=== PATIENT | female | born 1965 | race Two or more races ===

== ENCOUNTER → 2020-07-09 | Outpatient (CLI) | payer OTHER ==
[~2020-07-09] MED LIST: LIDOCAINE 2%/EPI 1:100,000 20 ML VIAL. INJ ONE
--- NOTE | 2020-07-09 16:45 | RAD ---
EXAM: Stereotactic right breast biopsy; specimen radiograph, postbiopsy clip placement, unilateral po stbiopsy mammogram. CLINICAL HISTORY: Suspicious calcifications right breast TECHNIQUE AND FINDINGS: Risks, benefits, treatment options, and potential complications were discussed with the patient. Cons ent was obtained and the patient indicated willingness to proceed. A time out was performed immediate ly prior to the procedure to correctly identify the patient, side, site, and type of procedure to be performed. The patient was seated at the stereotactic machine and the right breast was placed in compression. Im ages were obtained and the lesion(s) of concern was localized using stereotaxis. The overlying skin w as then sterilely prepped and local anesthesia was administered using 1% lidocaine in the skin and 2% lidocaine with epinephrine in the deeper soft tissues. The biopsy device was then advanced and appro priate positioning was confirmed with additional imaging. Subsequently, 12 core biopsy samples were obtained with vacuum assistance. A postbiopsy specimen radi ograph was obtained demonstrating inclusion of the lesion(s) of interest. A biopsy marker clip was th en advanced to the site of biopsy utilizing the same guidance technique. Good hemostasis was achieved with light manual compression and sterile dressing was applied. The patient was then transferred to the mammography suite for craniocaudal and mediolateral oblique views. Postbiopsy mammogram demonstrates immediate postbiopsy changes and a biopsy marker clip in expected p osition. The patient tolerated the procedure without difficulty and was discharged to home in stable condition with postbiopsy care instructions. IMPRESSION: Successful stereotactic biopsy of the right breast and postbiopsy marker clip placement. Please refer to the separate report submitted by the Department of Pathology for specimen findings. Electronically signed by: Sherman Dobbs DO (07/09/2020 4:42 PM) [facility]
== END | disposition home or self-care (01) ==
LOC: MAMMO 13:56
DX: R92.1 Mammographic calcification found on diagnostic imaging of breast (principal); Z88.8 Allergy status to other drugs, medicaments and biological substances; Z79.899 Other long term (current) drug therapy
CPT/HCPCS: 19081; 77065; J3490